=== PATIENT | female | born 1990 | race Caucasian/White ===

== ENCOUNTER 2021-12-19 10:32 | Outpatient (CLI) | payer BC, SELFPAY ==
[2021-12-19 11:14] LABS: Basophils Percent Auto 0.3 % (0.2-1.2); Eosinophils Absolute Auto 0.1 K/mm3 (0-0.3); Eosinophils Percent Auto 0.6 % (0-4.4); Hematocrit 38.4 % (37.0-47.0); Immature Granulocyte Absolute 0.05 K/mm3 (0.00-0.031); Immature Granulocyte Percent A 0.5 % (0-0.5); Lymphocytes Absolute Auto 1.35 K/mm3 (0.9-3.2); Lymphocytes Percent Auto 13.7 % (18.3-44.2); Mean Corpuscular HGB Conc 33.9 g/dl (32-36); Mean Corpuscular Hemoglobin 29.5 pg (26-34); Mean Corpuscular Volume 87.3 fl (80-100); Mean Platelet Volume 11.4 fl (7.4-10.4); Monocytes Absolute Auto 0.6 K/mm3 (0.1-0.6); Monocytes Percent Auto 5.7 % (2.6-8.5); Neutrophils Absolute Auto 7.8 K/mm3 (1.3-6.7); Neutrophils Percent Auto 79.2 % (45.5-73.1); Platelet Count Result 212 k/mm3 (150-375); Red Cell Distribution Width 13.2 % (11.5-14.5); White Blood Count 9.8 K/mm3 (4.5-10.0)
== END 2021-12-19 10:33 | disposition home or self-care (01) ==
PROVIDERS: Visit Provider Student in an Organized Health Care Education/Training Program
DX: Z34.90 Encounter for supervision of normal pregnancy, unspecified, unspecified trimester (principal); Z3A.00 Weeks of gestation of pregnancy not specified
CPT/HCPCS: 36415; 85025; 87040

== ENCOUNTER 2022-02-26 08:17 | Outpatient (RCR) | payer BC, SELFPAY ==
[2022-02-26] MEDS: RHO(D) IMMUNE GLOBULIN 300 MCG/2 ML SYRINGE IM (10:16)
== END 2022-02-26 09:00 | disposition home or self-care (01) ==
LOC: ANHLAB 08:17
PROVIDERS: Visit Provider Student in an Organized Health Care Education/Training Program
DX: Z34.90 Encounter for supervision of normal pregnancy, unspecified, unspecified trimester (principal); Z29.13 Encounter for prophylactic Rho(D) immune globulin; Z3A.00 Weeks of gestation of pregnancy not specified
CPT/HCPCS: 36415; 85461; 90384; 96372; J2790

== ENCOUNTER 2022-05-13 23:42 | Inpatient (IN) | payer BC, SELFPAY ==
[2022-05-14] VITALS (41 sets, daily range): BP systolic 92–145; BP diastolic 65–99; PULSE 45–80; RESP 16; TEMP 36.1–37; O2SAT 98–100; BMI 30.6
--- NOTE | 2022-05-14 00:31 | LDADM ---
This patient, Michela Thomson, was admitted to Labor/Delivery/Recovery 106 on 05/13/22 at 23:42. Plans for labor, pain management and were discussed with patient. Patient/family oriented to hospital policies and general routines including ID bracelet, bed and alarms, visiting hours, pain management, procedures, bathroom and other care routines, personal items, smoking policy, room service/diet and guest tray routines, security routines, and visiting hours. Patient/Family are encouraged to report perceived risks to care and to ask questions if they do not understand what they are told or what they should do. See OBIX for further documentation.
[2022-05-14 00:42] LABS: Basophils Absolute Auto 0.1 K/mm3 (0.0-0.1); Basophils Percent Auto 0.5 % (0.2-1.2); Eosinophils Absolute Auto 0.1 K/mm3 (0-0.3); Hematocrit 35.6 % (37.0-47.0); Hemoglobin 11.8 g/dL (12.0-15.0); Immature Granulocyte Absolute 0.08 K/mm3 (0.00-0.031); Immature Granulocyte Percent A 0.8 % (0-0.5); Lymphocytes Percent Auto 22.2 % (18.3-44.2); Mean Corpuscular HGB Conc 33.1 g/dl (32-36); Mean Corpuscular Hemoglobin 28.6 pg (26-34); Mean Corpuscular Volume 86.2 fl (80-100); Mean Platelet Volume 12.4 fl (7.4-10.4); Monocytes Absolute Auto 0.8 K/mm3 (0.1-0.6); Neutrophils Absolute Auto 6.7 K/mm3 (1.3-6.7); Neutrophils Percent Auto 67.5 % (45.5-73.1); Platelet Count Result 185 k/mm3 (150-375); Red Blood Count 4.13 M/mm3 (4.2-5.4); Red Cell Distribution Width 13.6 % (11.5-14.5); White Blood Count 9.9 K/mm3 (4.5-10.0)
--- NOTE | 2022-05-14 01:16 | WPDANESEPP ---
Anes - Eval Pre Procedure Procedure: labor epidural Date/Time: 05/14/22 01:16 Pre Op Diagnosis: IOL Patient Data Age: 31 Gender: F Height: 1.7 m Weight: 88.6 kg Last Vital Signs Temp 36.4 C 05/14/22 00:50 Pulse 64 05/14/22 01:16 BP 108/76 05/14/22 01:16 Pulse Ox 100 05/14/22 00:02 O2 Del Method Room Air 05/14/22 00:47 Allergies Allergy/AdvReac Type Severity Reaction Status Date / Time No Known Allergies Allergy Verified 05/14/22 00:48 Home Medications Medication Instructions Recorded Confirmed Type prenat.vits,yahir,zvf-eooq-bivky 1 tablet PO HS 04/22/22 05/14/22 History Laboratory Tests 05/14/22 05/14/22 00:04 00:04 WBC 9.9 K/mm3 K/mm3 (4.5-10.0) RBC 4.13 M/mm3 L M/mm3 (4.2-5.4) Hgb 11.8 g/dL L g/dL (12.0-15.0) Hct 35.6 % L % (37.0-47.0) MCV 86.2 fl fl (80-100) MCH 28.6 pg pg (26-34) MCHC 33.1 g/dl g/dl (32-36) RDW 13.6 % % (11.5-14.5) Plt Count 185 k/mm3 k/mm3 (150-375) MPV 12.4 fl H fl (7.4-10.4) Immature Gran % (Auto) 0.8 % H % (0-0.5) Neut % (Auto) 67.5 % % (45.5-73.1) Lymph % (Auto) 22.2 % % (18.3-44.2) [place] % (Auto) 8.0 % % (2.6-8.5) Eos % (Auto) 1.0 % % (0-4.4) Baso % (Auto) 0.5 % % (0.2-1.2) Lymph # (Auto) 2.20 K/mm3 K/mm3 (0.9-3.2) [place] # (Auto) 0.8 K/mm3 H K/mm3 (0.1-0.6) Eos # (Auto) 0.1 K/mm3 K/mm3 (0-0.3) Baso # (Auto) 0.1 K/mm3 K/mm3 (0.0-0.1) Abs Immat Gran (auto) 0.08 K/mm3 H K/mm3 (0.00-0.031) Absolute Neuts (auto) 6.7 K/mm3 K/mm3 (1.3-6.7) Absolute Nucleated RBC 0.0 K/mm3 K/mm3 (0.0-0.012) Nucleated RBC % 0.0 % % (0.0-0.2) RPR Pending Patient hx anesthesia problems: none Family hx anesthesia problems: none Results Review: All pre-operative results and documents have been reviewed as part of the pre-operative evaluation. [facility] Family History Family History Grandparent Cancer Grandparent Cerebrovascular accident Grandparent Cancer Grandparent Diabetes mellitus Social History Social History Smoking status: Never smoker Substance use: never Spiritual care concerns: No Exam Day of Procedure 05/14/22 01:16 Patient weight: obese Heart: regular rate and rhythm Lungs: normal air movement Airway: Mallampati scale Neurological: alert and oriented
[2022-05-14] MEDS: LACTATED RINGERS 1,000 ML 125 ML IV CONT (04:21)
[2022-05-14] MEDS: OXYTOCIN 30 UNITS/NS 500 ML 30 UNITS/500 ML BAG IV CONT (04:23)
[2022-05-14 06:15] LABS: Rapid Plasma Reagin Non-Reactive (NonReactive)
--- NOTE | 2022-05-14 09:10 | WPDOBADMIT ---
Obstetrics - Admit Note Admission Note: record reviewed. Additions to the history and/or subsequent changes in the physical findings follow. 31 y/o at 39 1/7 weeks here for induction of labor. GBS neg. AVSS NST reactive TOCO: contractions every 2-3 min ABD soft, nontender, gravid, vertex EXT nontender Cervix 4/80/-2. AROM with clear fluid. Vertex. A: IUP at term with favorable cervix, desiring induction of labor. P: Oxytocin. Anticipate .
[2022-05-14] MEDS: ONDANSETRON INJ 4 MG/2 ML VIAL IV PUSH (10:08)
[2022-05-14] MEDS: fentaNYL CITRATE INJ (*CRX) 100 MCG/2 ML VIAL IV PUSH (10:26)
--- NOTE | 2022-05-14 11:58 | PM.IMHP ---
H&P: HPI History of Present Illness Date/Time: 05/14/22 11:58 Chief Complaint: Intrauterine at term Narrative: 31 yo at 39w1d who presents for elective IOL. Pt is Rh negative and has received rhogam. The remainder of her has been uncomplicated. Review of Systems Cardiovascular: Cardiovascular: Denies chest pain, Denies leg edema, Denies palpitations, Denies dyspnea and Denies dyspnea on exertion Respiratory: Respiratory: Denies cough, Denies dyspnea and Denies dyspnea on exertion Gastrointestinal: Gastrointestinal: Denies abdominal pain, Denies constipation, Denies diarrhea, Denies nausea and Denies vomiting Genitourinary: Genitourinary: Denies hematuria, Denies urinary frequency, Denies dysuria, Denies pelvic pain, Denies urinary incontinence and Denies vaginal discharge Neurologic: Reports system reviewed and no additional complaints, except as documented Psychiatric: Psychiatric: Reports no additional psychiatric complaints Endocrine: Endocrine: Denies palpitations [facility] Family History Family History Grandparent Cancer Grandparent Cerebrovascular accident Grandparent Cancer Grandparent Diabetes mellitus Social History Social History Smoking status: Never smoker Substance use: never Spiritual care concerns: No Meds Home Medications and Allergies Home Medications Medication Instructions Recorded Confirmed Type prenat.vits,yahir,twu-bjmi-yycuj 1 tablet PO HS 04/22/22 05/14/22 History Allergies Allergy/AdvReac Type Severity Reaction Status Date / Time No Known Allergies Allergy Verified 05/14/22 00:48 Vital Signs Vital Signs - 24 hr 05/14/22 00:02 05/14/22 00:13 05/14/22 00:15 Temperature Pulse Rate 67 77 Blood Pressure 110/79 107/75 Pulse Oximetry 100 Oxygen Delivery 05/14/22 00:31 05/14/22 00:46 05/14/22 00:50 Temperature 36.4 C Pulse Rate 71 71 Blood Pressure 113/74 107/73 Pulse Oximetry Oxygen Delivery 05/14/22 01:16 05/14/22 01:31 05/14/22 02:01 Temperature Pulse Rate 64 63 59 L Blood Pressure 108/76 110/74 107/74 Pulse Oximetry Oxygen Delivery 05/14/22 02:50 05/14/22 04:08 05/14/22 04:31 Temperature 36.1 C L Pulse Rate 69 66 Blood Pressure 124/81 113/81 Pulse Oximetry Oxygen Delivery 05/14/22 04:32 05/14/22 05:01 05/14/22 05:31 Temperature 36.3 C L Pulse Rate 57 L 66 Blood Pressure 104/74 106/76 Pulse Oximetry Oxygen Delivery 05/14/22 06:01 05/14/22 06:31 05/14/22 07:30 Temperature 36.3 C L Pulse Rate 69 62 Blood Pressure 96/74 L 108/76 Pulse Oximetry Oxygen Delivery 05/14/22 08:01 05/14/22 08:31 05/14/22 09:16 Temperature Pulse Rate 80 65 66 Blood Pressure 118/71 117/67 116/81 Pulse Oximetry Oxygen Delivery 05/14/22 09:31 05/14/22 09:46 05/14/22 09:30 Temperature 36.2 C L Pulse Rate 57 L 62 Blood Pressure 125/86 141/99 H Pulse Oximetry Oxygen Delivery 05/14/22 11:01 05/14/22 11:16 05/14/22 11:31 Temperature Pulse Rate 62 45 L 56 L Blood Pressure 145/89 H 124/88 115/79 Pulse Oximetry Oxygen Delivery 05/14/22 00:47 Temperature Pulse Rate Blood Pressure Pulse Oximetry Oxygen Delivery Room Air Exam Const: General: no acute distress Eyes: EOM: EOMs intact bilaterally Neck: Neck: supple Thyroid: thyroid normal Chest: Breast/axilla inspection: normal inspection of the breasts Breast/axilla palpation: normal palpation of the breasts, normal palpation of the axillae and no axillary lymphadenopathy Resp: Effort & Inspection: normal respiratory effort Auscultation: clear to auscultation bilaterally Cardio: Rate: regular rate Rhythm: regular rhythm GI: Inspection: non-distended and other (Gravid) GI Palp: Yes Soft to palpation, No Tenderness to palpation pre
--- NOTE | 2022-05-14 12:00 | PM.OBPRVD ---
OB - Delivery Note Procedure Procedure: Patient pushed for a spontaneous vaginal delivery. The fetus was delivered atraumatically and placed on the maternal abdomen. The cord was clamped and cut after 1 minute of life. The cord was double clamped and cut and a segment of cord was collected for cord gases. Cord blood was collected for blood type and Coomb's testing. The placenta delivered spontaneously and was noted to be intact. The perineum was inspected and there was a 1st degree perineal laceration. The laceration was repaired with 3-0 vicryl in the usual fashion. The uterus was firm and good hemostasis was noted. The patient and fetus were stable in the delivery room. Induction method: Per Pitocin Protocol Delivery augmentation: Rupture of Membranes Delivery monitor: External FHT Route of delivery: Episiotomy description: None Laceration Description: Perineal - 1st Degree Delivery repair: vicryl Specimen: No Quantitative Blood Loss (ml): 200 Anesthesia type: None Disposition: Floor () Complications: No immediate complications [place] Baby Date of : 05/14/22 Time of : 11:42 Weeks of gestation at delivery: 39 Infant gender: Female Weight (pounds): 8 Weight (ounces): 5 presentation: vertex position: Left Occiput Anterior Placenta delivery description: Spontaneous Cord Vessel Description: 3 Vessels score one minute: 8 score five minutes: 9
[2022-05-14] MEDS: OXYTOCIN 30 UNITS/NS 500 ML 30 UNITS/500 ML BAG 125 UNITS IV CONT (12:21)
[2022-05-14] MEDS: LIDOCAINE HCL 1% PF 30 ML VIAL (12:26)
[2022-05-14] MEDS: IBUPROFEN 600 MG TABLET PO (14:27)
--- NOTE | 2022-05-14 14:46 | PC.NURSE ---
Patient transferred to post room #292 via wheelchair. Support person present. Oriented to unit, room, information board, rooming in, admission packet and security measures. Patient verbalizes understanding.
--- NOTE | 2022-05-14 17:36 | PC.NURSE ---
[id number] Introductions were made, then consulted with patient to assess needs related to . Mother led the conversation with her experience feeding her so far and states infant breastfed well downstairs. Mother works well with her infant with encouragement and education. Encouraged understanding of the benefits of skin to skin (unwrapping and placing vertically on her chest), responsive feeding and how to watch for early feeding signs, frequency of feeding on demand about every 8-12 times in 24 hours (every 2-3 hours), milk production, duration of feeding, signs of adequate intake/output and how to record on the feeding sheet. placed skin to skin on mother's chest. Breast assessment reveals a small bruise on the areola on bilateral breast. Discussed the possibility that might not have effectively breastfed. is sleepy and reluctant to breastfeed at this time. Mother demonstrates teaching of hand expression. Human milk is collected into a spoon and syringe fed 1/2 tsp by RN. Resources used to facilitate learning were used with the visual handouts/ tool/mom and baby guide. Mother voiced understanding of responsive feedings, stimulating with skin to skin, hand expressed colostrum, touch, talking to to encourage if it has been 2 -3 hours since the start of the last , to call if infant does not latch or there is discomfort with . Reported to the primary RN Maria Victoria.
[2022-05-15] MEDS: IBUPROFEN 600 MG TABLET PO (04:54)
[2022-05-15 05:15] VITALS: BP 114/75; PULSE 61; RESP 16; TEMP 36.4; O2SAT 99
[2022-05-15 05:47] LABS: Hematocrit 34.1 % (37.0-47.0); Hemoglobin 11.6 g/dL (12.0-15.0)
[2022-05-15] MEDS: MULTIVIT/MIN/PREN/FOL AC/IRON TABLET 1 TAB PO (08:02)
[2022-05-15 08:15] VITALS: BP 106/68; PULSE 62; RESP 16; TEMP 36.7; O2SAT 100
--- NOTE | 2022-05-15 12:05 | PC.NURSE ---
[id number] Mother verbalizes she is able to independently latch with appropriate positioning/alignment. She denies any nipple discomfort and is responsively . Infant is currently meeting outcomes for weight, output, jaundice and feeding frequencies of 8-12 times in 24 hours. Mother demonstrates latching infant with cradle positioning. is demonstrating non-nutritive sucking, mother visualizes the piston motion sucking without swallowing. Infant is detached from the breast when assessment of latch is <90 degrees. RN assisted mother with to the right breast using football positioning and mother verbalized understanding of the visual demonstration of a wide, open gape rocking motion, suck/swallow ratios, and seeing/hearing swallows. Mother is encouraged to call for assistance if her infant doesn?t latch, there is discomfort with latching, or she is not visualizing swallowing at the breast. Mother voiced understanding of information shared and mom and baby guide reviewed for additional resource information . Reported to the primary RN Amanda.
--- NOTE | 2022-05-15 13:00 | PM.OBDSVD ---
DS: Admitting Diagnosis Discharge Date 05/15/22 Admitting Diagnosis intrauterine at term OB - DS: Summary OB Procedures : None OB Procedures Intrapartum: Spontaneous Vag Delivery OB Procedures: : None Status at Discharge Functional status at discharge: independent ambulation Overall status at discharge: patient is back to baseline Time Spent with Patient Time attestation: Total time spent providing and/or coordinating discharge services: Time spent: Less than 30 minutes Exam Const: General: comfortable and no acute distress Resp: Effort & Inspection: normal respiratory effort Auscultation: clear to auscultation bilaterally Cardio: Rate: regular rate GI: GI Palp: Yes Soft to palpation Auscultation: normal bowel sounds Other: Fundus firm below umbilicus Psych: Appearance: grossly normal Mental Status: mental status grossly normal Affect: normal affect DS: Data Data Completed and Pending Labs on day of discharge: Labs from last 24 hours 05/15/22 05:27 Hgb 11.6 L Hct 34.1 L Discharge Plan Discharge Discharging Clinician: Donavan Stringer Patient Disposition: Home, Self-Care Activity: as tolerated and pelvic rest Diet: regular Patient Instructions: Antibiotic Form Stand Alone Forms: General Discharge Information Follow-up/Referrals: Donavan Stringer MD [Physician] - 4 Weeks Discharge Medications: New acetaminophen [Mapap (acetaminophen)] 325 mg Tablet 650 mg PO Q6H PRN (Reason: Mild Pain (1-3) Or Headache) Qty: 30 0RF ibuprofen 600 mg Tablet 600 mg PO Q6H PRN (Reason: Cramping) Qty: 30 0RF Continued #2 Tablet 1 tablet PO HS Date of admission: 05/13/22 23:42 Primary Care Provider: PHYSICIAN,CIRCUS SUPERVISOR Admitting Provider: Donavan Stringer Attending physician on admission: Donavan Stringer Condition: Stable
[2022-05-17 11:02] VITALS: BP 122/84; PULSE 84; RESP 16; TEMP 37.2; O2SAT 100
== END 2022-05-15 15:33 | disposition home or self-care (01) | DRG 807 ==
LOC: ANHLDR 05-14 10:20 → ANHOB2 05-14 14:47
PROVIDERS: Admitting Provider Student in an Organized Health Care Education/Training Program; Visit Provider Student in an Organized Health Care Education/Training Program
DX: O26.893 Other specified pregnancy related conditions, third trimester (principal); Z37.0 Single live birth; Z3A.39 39 weeks gestation of pregnancy; Z67.91 Unspecified blood type, Rh negative; O70.0 First degree perineal laceration during delivery
CPT/HCPCS: 36415; 85014; 85018; 85025; 86592; 86850; 86880; 86900; 86901; 86902; A9270; J2405; J2590; J3010; J7120

== ENCOUNTER 2022-06-14 18:14 | Emergency (ER) | payer BC, SELFPAY ==
--- NOTE | ~2022-06-14 | CT_ITS ---
EXAMINATION: CT brain wo con DATE: 06/14/2022 18:59 INDICATION: Headache. TECHNIQUE: Computed tomography (CT) of the head was performed without intravenous contrast. The mA wa s adjusted according to patient size. Iterative reconstruction technique was employed. The dose-lengt h product was 605.33 mGy-cm. COMPARISON: None FINDINGS: There is no intracranial hemorrhage, acute infarction, or abnormal intracranial mass lesion . The ventricles are normal in size. The orbits are normal. There is minimal mucosal thickening in th e paranasal sinuses. The mastoid air cells are normal. There are multiple calcified masses in the sca lp, likely benign. IMPRESSION: 1. Normal brain. Reviewed, dictated and finalized at location A. IMPRESSION: 1. Normal brain.
[2022-06-14 18:26] VITALS: BP 130/86; PULSE 60; RESP 18; TEMP 36.6; O2SAT 99
--- NOTE | 2022-06-14 20:48 | ED.HA ---
HPI - Headache General Chief Complaint: Headache <TERESO Gamez Last Filed: 06/15/22 00:28> Stated Complaint: migraine and tongue numbness <TERESO Gamez Last Filed: 06/15/22 00:28> Time Seen by Provider: 06/14/22 20:47 <TERESO Gamez Last Filed: 06/15/22 00:28> History of Present Illness HPI Narrative: Patient is a 31-year-old female here for evaluation of a migraine headache today. Patient states that the headache is frontal in nature, is pulsatile, and was relieved after [id number] pain meds. She does have a history of migraine headaches and states this feels similar. She presents emergency department because she states that the right half of her tongue is numb, and she cannot taste anything on that half. Denies similar sensation with previous migraines. No difficulty moving the tongue, weakness, visual changes, tick bites. <TERESO Gamez Last Filed: 06/15/22 00:28> Related Data Home Medications: Home Medications Medication Instructions Recorded Confirmed prenat.vits,yahir,qts-shla-halap 1 tablet PO HS 04/22/22 05/14/22 <TERESO Gamez Last Filed: 06/15/22 00:28> Allergies/Adverse Reactions: Allergies Allergy/AdvReac Type Severity Reaction Status Date / Time No Known Allergies Allergy Verified 06/14/22 18:31 <TERESO Gamez Last Filed: 06/15/22 00:28> Review of Systems Review of Systems: Gen.: Denies fevers or chills Eyes: Denies eye pain or visual change ENT: Denies congestion Respiratory: Denies shortness of breath or cough CV: Denies chest pain or palpitations GI: Denies abdominal pain nausea, emesis or diarrhea denies burning, urgency, frequency or hematuria Musculoskeletal: Denies back pain or muscle pain Neuro: Reports headache and numbness to right half of tongue. Denies weakness or focal weakness Skin: Denies rash Except as documented, all other systems reviewed and negative <LAURIE GamezC - Last Filed: 06/15/22 00:28> [facility] Family History Family History: Family History Grandparent Cancer Grandparent Cerebrovascular accident Grandparent Cancer Grandparent Diabetes mellitus <Antoinette Garcia PA-C - Last Filed: 06/15/22 00:28> Social History Social History: Social History Smoking status: Never smoker Substance use: never Spiritual care concerns: No <Antoinette Garcia PA-C - Last Filed: 06/15/22 00:28> Exam Narrative: APPEARANCE: Well appearing, no pain in distress, well-nourished. Head: Normocephalic and atraumatic. EYES: PERRLA/EOMI, conjunctivae clear NOSE: No nasal drainage EARS: External ear normal in appearance THROAT: Oropharynx is clear. Mucous membranes are moist. NECK: Supple. No adenopathy, no masses. RESPIRATORY: Airway patent, respirations nonlabored. Clear to auscultation bilaterally, no rales, rhonchi, wheezing. CARDIOVASCULAR: Regular rate and rhythm without murmurs, rubs, or gallops. ABDOMINAL: Normoactive bowel sounds. Soft, nontender, nondistended. No rebound tenderness or guarding. MUSCULOSKELETAL: Extremities are warm and well-perfused. Moves all extremities well. No edema. NEURO: Cranial nerves II through XII intact. Finger-nose normal. Normal speech. No focal neurologic deficits. SKIN: Skin is warm and dry. No rashes. PSYCHIATRIC: Normal affect/mood. <Antoinette Garcia PA-C - Last Filed: 06/15/22 00:28> Course APPLICATIONS SYSTEM ANALYST/PA Physician Supervision For this patient encounter, I reviewed the APPLICATIONS SYSTEM ANALYST or PA documentation, treatment plan, and medical decision making <Dereck Kelley MD - Last Filed: 06/15/22 13:01> Vital Signs Vital signs: Vital Signs Temperature 97.8 F 06/14/22 18:26 Pulse Rate 60 06/14/22 18:26 Respiratory Rate 18 06/14/22 18:2
[2022-06-14 21:05] LABS: Basophils Absolute Auto 0.1 K/mm3 (0.0-0.1); Basophils Percent Auto 0.8 % (0.2-1.2); Eosinophils Absolute Auto 0.3 K/mm3 (0-0.3); Eosinophils Percent Auto 5.2 % (0-4.4); Hematocrit 39.5 % (37.0-47.0); Hemoglobin 12.9 g/dL (12.0-15.0); Immature Granulocyte Absolute 0.02 K/mm3 (0.00-0.031); Immature Granulocyte Percent A 0.3 % (0-0.5); Lymphocytes Percent Auto 31.1 % (18.3-44.2); Mean Corpuscular HGB Conc 32.7 g/dl (32-36); Mean Corpuscular Hemoglobin 28.4 pg (26-34); Mean Corpuscular Volume 86.8 fl (80-100); Mean Platelet Volume 11.3 fl (7.4-10.4); Monocytes Absolute Auto 0.5 K/mm3 (0.1-0.6); Monocytes Percent Auto 7.4 % (2.6-8.5); Neutrophils Absolute Auto 3.4 K/mm3 (1.3-6.7); Neutrophils Percent Auto 55.2 % (45.5-73.1); Platelet Count Result 233 k/mm3 (150-375); Red Blood Count 4.55 M/mm3 (4.2-5.4); Red Cell Distribution Width 12.3 % (11.5-14.5); White Blood Count 6.1 K/mm3 (4.5-10.0)
[2022-06-14 21:15] LABS: Alanine Aminotransferase 23 U/L (6-35); Albumin Level 4.2 g/dL (3.5-5.1); Alkaline Phosphatase 94 U/L (38-126); Anion Gap 10 mmol/L (8-16); Aspartate Amino Transferase 24 U/L (14-36); Bilirubin,Total 0.2 mg/dL (0.2-1.3); Blood Urea Nitrogen 14 mg/dL (7-17); Carbon Dioxide 28 mmol/L (22-30); Chloride 100 mmol/L (98-107); Estimated CRCL calculation 85 ml/min; Estimated Glomerular Filt Rate > 60; Glucose 92 mg/dL (65-110); Potassium 3.7 mmol/L (3.4-5.0); Sodium 138 mmol/L (137-145)
[2022-06-14 21:17] LABS: Appearance Urine Clear (Clear); Bilirubin Urine Negative (Negative); Blood Urine 1+ (Negative); Color Urine Yellow (Yellow); Glucose Urine UA Negative (Negative); Ketones Urine Negative (Negative); Leukocyte Esterase Ur 1+ LEU/UL (Negative); Nitrate Urine Negative (Negative); Protein Urine Negative (Negative); Urobilinogen Urine 0.2 mg/dL (<2.0)
[2022-06-14 21:20] LABS: Add Urine Microscopic? YES; Amorphous Sediment Urine Few; Mucus Urine Rare /lpf; RBC Urine 0-2 /hpf (0-2); Squamous Epithelial Cell Urine Rare /hpf (Few)
[2022-06-14 21:28] VITALS: BP 127/92; PULSE 67; RESP 16; O2SAT 99
== END 2022-06-14 21:47 | disposition home or self-care (01) ==
PROVIDERS: Physician Assistant; Emergency Provider Emergency Medicine
DX: G43.909 Migraine, unspecified, not intractable, without status migrainosus (principal)
CPT/HCPCS: 36415; 70450; 80053; 81001; 85025; 87086; 99284

== ENCOUNTER 2022-06-22 08:34 | Outpatient (CLI) | payer BC, SELFPAY ==
--- NOTE | ~2022-06-22 | MR_ITS ---
EXAMINATION: MR brain/brain stem wo/w con DATE: 06/22/2022 09:21 INDICATION: Murphy's palsy. Left tongue numbness. Left facial weakness. TECHNIQUE: Magnetic resonance imaging (MRI) of the brain and brainstem was performed without with 15 mL MultiHance intravenous contrast. COMPARISON: Head CT 06/14/2022 FINDINGS: There is focal enhancement involving the fundus of the left internal auditory canal and lab yrinthine segment of left facial nerve, consistent with Murphy's palsy. There is no acute ischemic infa rct or intracranial hemorrhage. The ventricles are normal in size. The orbits are normal. The paranas al sinuses are clear. The mastoid air cells are normal. IMPRESSION: 1. Focal enhancement involving the fundus of the left internal auditory canal and labyrinthine segmen t of the left facial nerve, consistent with Murphy's palsy. Reviewed, dictated and finalized at location A. IMPRESSION: 1. Focal enhancement involving the fundus of the left internal auditory canal a nd labyrinthine segment of the left facial nerve, consistent with Murphy's palsy.
== END 2022-06-22 08:35 | disposition home or self-care (01) ==
PROVIDERS: Visit Provider Internal Medicine
DX: G51.0 Bell's palsy (principal)
CPT/HCPCS: 70553; A9577

== ENCOUNTER 2023-07-31 18:48 | Outpatient (NON) | payer BC, SELFPAY | END 2023-07-31 18:49 | disposition home or self-care (01) | LOC: ANHLAB 18:53 | PROVIDERS: Visit Provider Nurse Practitioner | DX: R22.9 Localized swelling, mass and lump, unspecified (principal) | CPT/HCPCS: 87070; 87075; 87076; 87205 ==

== ENCOUNTER 2023-09-11 14:14 | Outpatient (NON) | payer BC, SELFPAY | END 2023-09-11 14:15 | disposition home or self-care (01) | LOC: ANHLAB 14:16 | PROVIDERS: Visit Provider Nurse Practitioner | DX: L72.11 Pilar cyst (principal) | CPT/HCPCS: 88304 ==

== ENCOUNTER 2024-11-08 08:47 | Outpatient (RCR) | payer BC, SELFPAY ==
[2024-11-08] MEDS: RHO(D) IMMUNE GLOBULIN 300 MCG/2 ML SYRINGE IM (11:32)
== END 2025-02-06 23:59 | disposition home or self-care (01) ==
LOC: ANHLAB 08:47
PROVIDERS: Visit Provider Obstetrics & Gynecology
DX: Z29.13 Encounter for prophylactic Rho(D) immune globulin (principal); O36.0190 Maternal care for anti-D [Rh] antibodies, unspecified trimester, not applicable or unspecified; Z3A.00 Weeks of gestation of pregnancy not specified
CPT/HCPCS: 36415; 85461; 86850; 86900; 86901; 90384; 96372; J2790

== ENCOUNTER 2025-01-09 20:55 | Inpatient (IN) | payer BC, SELFPAY ==
[2025-01-09] VITALS (30 sets, daily range): BP systolic 112; BP diastolic 69; PULSE 65–116; TEMP 36.6; O2SAT 93–100; BMI 30.4
[2025-01-09] MEDS: LACTATED RINGERS 1,000 ML 125 ML IV CONT (21:00)
[2025-01-09 21:18] LABS: Basophils Percent Auto 0.2 % (0.2-1.2); Eosinophils Absolute Auto 0.1 K/mm3 (0-0.3); Eosinophils Percent Auto 0.9 % (0-4.4); Hematocrit 37.5 % (37.0-47.0); Hemoglobin 12.8 g/dL (12.0-15.0); Immature Granulocyte Absolute 0.07 K/mm3 (0.00-0.031); Immature Granulocyte Percent A 0.6 % (0-0.5); Lymphocytes Absolute Auto 2.39 K/mm3 (0.9-3.2); Lymphocytes Percent Auto 20.5 % (18.3-44.2); Mean Corpuscular HGB Conc 34.1 g/dl (32-36); Mean Corpuscular Hemoglobin 28.4 pg (26-34); Mean Corpuscular Volume 83.1 fl (80-100); Mean Platelet Volume 12.1 fl (7.4-10.4); Monocytes Absolute Auto 0.8 K/mm3 (0.1-0.6); Neutrophils Absolute Auto 8.3 K/mm3 (1.3-6.7); Neutrophils Percent Auto 70.8 % (45.5-73.1); Platelet Count Result 218 k/mm3 (150-375); Red Blood Count 4.51 M/mm3 (4.2-5.4); Red Cell Distribution Width 13.3 % (11.5-14.5); White Blood Count 11.7 K/mm3 (4.5-10.0)
[2025-01-09] MEDS: OXYTOCIN 30 UNITS/NS 500 ML 30 UNITS/500 ML BAG 999 UNITS IV CONT (21:20)
--- NOTE | 2025-01-09 21:26 | WPDOBADMIT ---
Obstetrics - Admit Note Admission Note: record reviewed. No pertinent additions to the history and/or any subsequent changes in the physical findings that are not consistent with the expected course of the were found. Additions to the history and/or subsequent changes in the physical findings follow. None. Patient arrived in labor and complete with BBOW on admit. On my arrival, AROM with clear fluid. FHTs cat I. Per patient and record, uncomplicated.
--- NOTE | 2025-01-09 21:27 | PM.OBDSVD ---
DS: Admitting Diagnosis Discharge Date 01/11/2025 <Steven Carson MD - Last Filed: 01/11/25 07:49> Admitting Diagnosis Labor <Becky Romero MD - Last Filed: 01/11/25 07:57> DS: Discharge Diagnosis Discharge Diagnosis (1) (normal spontaneous vaginal delivery): Code(s): O80 - Encounter for full-term uncomplicated delivery <Becky Romero MD - Last Filed: 01/11/25 07:57> Status: Acute <Becky Romero MD - Last Filed: 01/11/25 07:57> OB - DS: Summary OB Procedures : Ultrasound <Becky Romero MD - Last Filed: 01/11/25 07:57> OB Procedures Intrapartum: Spontaneous Vag Delivery <Becky Romero MD - Last Filed: 01/11/25 07:57> OB Procedures: : None <Becky Romero MD - Last Filed: 01/11/25 07:57> Peripartum Data Delivery Method: Natural Vaginal <Becky Romero MD - Last Filed: 01/11/25 07:57> Laceration Description: None <Becky Romero MD - Last Filed: 01/11/25 07:57> Episiotomy description: None <Becky Romero MD - Last Filed: 01/11/25 07:57> complications: none <Becky Romero MD - Last Filed: 01/11/25 07:57> Status at Discharge Functional status at discharge: independent ambulation <Becky Romero MD - Last Filed: 01/11/25 07:57> Overall status at discharge: patient is progressing back to baseline <Becky Romero MD - Last Filed: 01/11/25 07:57> Time Spent with Patient Time attestation: Total time spent providing and/or coordinating discharge services: <Becky Romero MD - Last Filed: 01/11/25 07:57> DS: Data Data Completed and Pending Labs on day of discharge: Labs from last 24 hours 01/09/25 21:11 WBC 11.7 H RBC 4.51 Hgb 12.8 Hct 37.5 MCV 83.1 MCH 28.4 MCHC 34.1 RDW 13.3 Plt Count 218 MPV 12.1 H Immature Gran % (Auto) 0.6 H Neut % (Auto) 70.8 Lymph % (Auto) 20.5 [place] % (Auto) 7.0 Eos % (Auto) 0.9 Baso % (Auto) 0.2 Lymph # (Auto) 2.39 [place] # (Auto) 0.8 H Eos # (Auto) 0.1 Baso # (Auto) 0.0 Abs Immat Gran (auto) 0.07 H Absolute Neuts (auto) 8.3 H Absolute Nucleated RBC 0.000 Nucleated RBC % 0.0 HIV 1&2 Ab/P24 Ag 4thGn Pending <Becky Romero MD - Last Filed: 01/11/25 07:57> Discharge Plan Discharge Attending physician on discharge: Foster Anaya <Becky Romero MD - Last Filed: 01/11/25 07:57> Foster Anaya <Steven Carson MD - Last Filed: 01/11/25 07:49> Discharging Clinician: Steven Henriquez <Becky Romero MD - Last Filed: 01/11/25 07:57> Steven Henriquez <Steven Carson MD - Last Filed: 01/11/25 07:49> Anticipated Discharge Date/Time: 01/11/25 21:28 <Becky Romero MD - Last Filed: 01/11/25 07:57> Patient Disposition: Home, Self-Care <Becky Romero MD - Last Filed: 01/11/25 07:57> Activity: may shower and pelvic rest <Becky Romero MD - Last Filed: 01/11/25 07:57> may shower and pelvic rest <Steven Carson MD - Last Filed: 01/11/25 07:49> Diet: regular <Becky Romero MD - Last Filed: 01/11/25 07:57> regular <Steven Carson MD - Last Filed: 01/11/25 07:49> Patient Instructions: Antibiotic Form <Becky Romero MD - Last Filed: 01/11/25 07:57> Patient Language: Kiswahili <Becky Romero MD - Last Filed: 01/11/25 07:57> Stand Alone Forms: General Discharge Information <Becky Romero MD - Last Filed: 01/11/25 07:57> Follow-up/Referrals: Foster Anaya MD [Physician] - Call for Appointment <Becky Romero MD - Last Filed: 01/11/25 07:57> Discharge Medications: Continued hydroxyzine HCl 25 mg tablet 25 mg PO PRN prenat.vits,yahir,azx-stuj-hcumk Tablet 1 tablet PO HS <Becky Romero MD - Last Filed: 01/11/25 07:57> Date of admission: 01/09/25 20:55 <Becky Romero MD - Last Filed: 01/11/25 07:57> Primary Care Provider: PHYSICIAN,HOME PLANNING CONSULTANT SALESPERSON <Becky Romero MD - Last Filed: 01/11/25 07:57> Admitting Provider: Foster Anaya <Becky Romero MD - Last Filed: 01/11/25 07:57> Attending physician on admission: Foster Anaya <Becky Romero MD - Last Filed: 01/11/25 07:57> Condition: Stable <Becky Romero MD - Last Filed: 01/11/25 07:57>
--- NOTE | 2025-01-09 21:29 | PM.OBPRVD ---
OB - Vaginal Delivery Note Procedure Delivery date: 01/09/25 Induction method: None Delivery monitor: External FHT and External Uterine Route of delivery: Episiotomy description: None Laceration Description: None Specimen: No Quantitative Blood Loss (ml): 50 Anesthesia type: None Disposition: Floor Complications: No immediate complications Narrative: After AROM, patient pushed over one contraction and delivered. Baby Date of : 01/09/25 Gestational Age by Date: 37 (37 5/7) gender: Female presentation: vertex position: Right Occiput Anterior Placenta delivery description: Spontaneous Cord Vessel Description: 3 Vessels, Nuchal Cord and Delayed Cord Clamping score one minute: 8 score five minutes: 9
[2025-01-09] MEDS: OXYTOCIN 30 UNITS/NS 500 ML 30 UNITS/500 ML BAG 125 UNITS IV CONT (21:50)
[2025-01-09 22:08] LABS: HIV 1/2 Ab P24 Ag Result Negative (Negative)
[2025-01-09 22:11] LABS: Syphilis IgG/IgM Antibody Negative (Negative)
[2025-01-09] MEDS: ACETAMINOPHEN 325 MG TABLET 650 MG PO (22:52)
--- NOTE | 2025-01-09 23:38 | OBPPTRN ---
Patient transferred to post room #284 via w/c. Support person present. Oriented to unit, room, information board, rooming in, admission packet and security measures. Patient verbalizes understanding.
[2025-01-10] VITALS: BP 100/70; PULSE 73; RESP 18; TEMP 36.8
[2025-01-10 04:40] VITALS: BP 105/72; PULSE 71; RESP 18; TEMP 36.6
[2025-01-10] MEDS: IBUPROFEN 600 MG TABLET PO ×2 (05:36→22:10)
[2025-01-10 06:04] LABS: Hematocrit 36.6 % (37.0-47.0)
--- NOTE | 2025-01-10 07:53 | P.PNOB_ITS ---
OB - PN: Subj Subjective Date/time seen: 01/10/25 07:53 Patient comments: no complaints, pain well controlled and tolerating diet [place] baby status: doing well OB - PN: Obj Data Labs 01/10/25 05:56 Labs: Laboratory Results - last 24 hr 01/09/25 01/10/25 21:11 05:56 WBC 11.7 H RBC 4.51 Hgb 12.8 12.0 Hct 37.5 36.6 L MCV 83.1 MCH 28.4 MCHC 34.1 RDW 13.3 Plt Count 218 MPV 12.1 H Immature Gran % (Auto) 0.6 H Neut % (Auto) 70.8 Lymph % (Auto) 20.5 [place] % (Auto) 7.0 Eos % (Auto) 0.9 Baso % (Auto) 0.2 Lymph # (Auto) 2.39 [place] # (Auto) 0.8 H Eos # (Auto) 0.1 Baso # (Auto) 0.0 Abs Immat Gran (auto) 0.07 H Absolute Neuts (auto) 8.3 H Absolute Nucleated RBC 0.000 Nucleated RBC % 0.0 Syphilis IgG/IgM Ab Negative HIV 1&2 Ab/P24 Ag 4thGn Negative Blood Type O Negative Antibody Screen Positive Antibody Identification Passive Due to RH Imm Glob Antigen Identification Cancelled JERMAINE, IgG Interpret Not Performed JERMAINE, Poly Interpret Neg JERMAINE, Complement Interp Not Performed OB - PN A/P Assessment and Plan (1) (normal spontaneous vaginal delivery): Code(s): O80 - Encounter for full-term uncomplicated delivery Status: Acute Plan Comments: Patient desires discharge home today with follow-up in 6 weeks Time Spent With Patient Time: Total time spent is greater than 50% in coordination of care (as documented) at patient's floor/unit and/or counseling patient: Review of Systems 2 Review of Systems: Gen.: Denies fevers or chills Eyes: Denies eye pain or visual change ENT: Denies congestion Respiratory: Denies shortness of breath or cough CV: Denies chest pain or palpitations GI: Denies abdominal pain nausea, emesis or diarrhea denies burning, urgency, frequency or hematuria Musculoskeletal: Denies back pain or muscle pain Neuro: Reports headache and numbness to right half of tongue. Denies weakness or focal weakness Skin: Denies rash Except as documented, all other systems reviewed and negative Exam 2 Const: General: cooperative, healthy appearing and comfortable O rientation/consciousness: oriented to person, oriented to place and oriented to time Resp: Effort & Inspection: normal respiratory effort GI: Inspection: normal to inspection
[2025-01-10 08:30] VITALS: BP 112/72; PULSE 77; RESP 16; TEMP 36.6; O2SAT 99
[2025-01-10 08:45] VITALS: PULSE 77; RESP 16; O2SAT 99
[2025-01-10 12:45] VITALS: BP 104/76; PULSE 79; RESP 16; TEMP 36.7; O2SAT 98
--- NOTE | 2025-01-10 18:41 | PC.NURSE ---
1715. Met with patient to assess and discuss needs related to feeding. Mother states it is her intention to combo feed. Mom reports she has no pain with feeding at this time. She reports she has been feeding about every 4 hours for 30-50 min. We discussed aiming to feed every 2-3 hours instead to get in more feedings during the day and to help establish her milk supply and make sure is getting enough. Mom reports she Breastfed for a short time with her first two children. Observed mother latching infant to the right breast in cross cradle position. Infant was able to maintain an appropriate latch. Mother declines declines nipple pain/discomfort throughout feeding. Encouraged mother to keep awake and nursing at the breast for 15 minutes. Mother taught to listen for infant swallowing during feedings. Encouraged mother to breastfeed infant 8-12 times in 24 hours (approximately every 2-3 hours), watching for early feeding cues. If is sleepy, unwrap and place baby skin to skin. Discussed signs that is effectively , i.e. sufficient voids and stools, jaundice within normal limits, <10% weight loss from . Mother educated on milk production, supply and demand, and expectations for in the immediate period. Encouraged feeding on demand and feeding durations of 15 minutes or greater. Discussed breast/nipple care with good hand hygiene, signs of a correct latch, listening for infant swallows and documenting feedings on the feeding sheet. Mother instructed to call for assistance if infant will not feed every 3 hours, if there is discomfort with , or if mother has any other questions or concerns. resources provided including the Mom and Baby Guide and name/number on communication board. Mother verbalized understanding. Updated patient?s primary RN with education provided.?
[2025-01-10 22:03] VITALS: BP 113/75; PULSE 73; RESP 18; TEMP 36.4; O2SAT 98
[2025-01-10] MEDS: MULTIVIT/MIN/PREN/FOL AC/IRON TABLET 1 TAB PO (22:10)
[2025-01-11 07:35] VITALS: BP 105/75; PULSE 87; RESP 16; TEMP 36.6; O2SAT 98
[2025-01-11] MEDS: DOCUSATE SODIUM 100 MG CAPSULE PO (08:13)
--- NOTE | 2025-01-11 10:08 | PC.NURSE ---
0730: Mother verbalizes she is able to independently latch infant with appropriate positioning and alignment. She denies any nipple discomfort and is responsively . Discussed long feeds and when infant is pacifying vs. actively feeding. Educated mother about lengths of feedings once her milk is in. Discussed introducing pacifier to and being able to differentiate hunger cues vs. pacifying. is currently meeting outcomes for weight, output, jaundice, blood sugar and feeding frequencies of 8-12 times in 24 hours. Mother is encouraged to call for assistance if her infant doesn?t latch, pain with latching, questions or concerns.
[2025-01-13 09:16] VITALS: BP 102/72; PULSE 84; RESP 18; TEMP 36.6; O2SAT 100
== END 2025-01-11 10:19 | disposition home or self-care (01) | DRG 807 ==
LOC: ANHLDR 01-12 09:41 → ANHOB2 01-12 09:41
PROVIDERS: Admitting Provider Obstetrics & Gynecology Gynecology; Visit Provider Obstetrics & Gynecology
DX: O69.81X0 Labor and delivery complicated by cord around neck, without compression, not applicable or unspecified (principal); Z37.0 Single live birth; O62.3 Precipitate labor; Z3A.37 37 weeks gestation of pregnancy
CPT/HCPCS: 36415; 85014; 85018; 85025; 86593; 86703; 86850; 86880; 86900; 86901; A9270; G0432; J2590; J7120

== ENCOUNTER 2025-05-17 15:14 | Emergency (ER) | payer BC, SELFPAY ==
--- NOTE | ~2025-05-17 | XR_ITS ---
EXAM: XR foot LT min 3V DATE: 05/17/2025 15:31 HISTORY: plantar pain, step/twist injury with pop noise . COMPARISON: None available. FINDINGS: Normal mineralization. No fracture or dislocation. No lytic or blastic lesion. Mild degene rative change at the first MTP joint and talonavicular joint. Os navicularis. No erosion or periostea l change. Soft tissues within normal limits. IMPRESSION: No acute osseous finding in the left foot. Reviewed, dictated and finalized at location K.
[2025-05-17 15:14] VITALS: BP 111/77; PULSE 84; RESP 16; TEMP 36.2; O2SAT 97
--- NOTE | 2025-05-17 15:43 | ED.LOWEXIN ---
HPI - Extremity Injury (Lower) General Chief Complaint: Extremity Injury, Lower Stated Complaint: foot injury Time Seen by Provider: 05/17/25 15:18 Source: patient Mode of arrival: ambulatory Limitations: no limitations History of Present Illness HPI Narrative: 34-year-old otherwise healthy here with the complaints of left foot pain which started yesterday. Patient states that she was standing on her toes supporting her daughter and this morning when she turned stated to have severe pain. complaint: foot injury Onset (ago): day(s) (1) Place: home Severity: mild Relieving factors: nothing Exacerbating factors: nothing Other symptoms: none Related Data Home Medications ?Medication ?Instructions ?Recorded ?Confirmed ?Last Taken ?Type prenat.vits,yahir,jmd-felw-mpsct 1 tablet PO HS 04/22/22 01/03/25 01/02/25 History hydroxyzine HCl 25 mg tablet 25 mg PO PRN 01/03/25 01/03/25 Unknown History Allergies Allergy/AdvReac Type Severity Reaction Status Date / Time No Known Allergies Allergy Verified 05/17/25 15:25 Review of Systems Review of Systems: All systems reviewed & are unremarkable except as noted in HPI and below Constitutional: Constitutional: Reports no additional constitutional complaints Eyes: Eyes: Reports no additional eye complaints ENT: Reports system reviewed and no additional complaints, except as documented Cardiovascular: Cardiovascular: Reports no additional cardiovascular complaints Respiratory: Respiratory: Reports no additional respiratory complaints Musculoskeletal: Musculoskeletal: Reports as per HPI Psychiatric: Psychiatric: Reports no additional psychiatric complaints PMFSH Family History Family History Grandparent Cancer Grandparent Cerebrovascular accident Grandparent Cancer Grandparent Diabetes mellitus Social History Social History Smoking status: Never smoker Substance use: never Do You Feel Safe in your Home?: Yes Lack of Transportation: No Lack of Food: Never True Current Housing: I Have Housing Concerned About Future Housing: No Difficulty Paying Gas/Electric Bills: No Difficulty Paying for Meds: No Currently Unemployed: No Education: Associate Degree Difficulty w/ Childcare or Family Care: No Spiritual care concerns: No Exam Narrative: GENERAL: Well-appearing, well-nourished, and in no acute distress. HEAD: Normocephalic, atraumatic. EYES: PERRLA and EOMI. NECK: Supple. CHEST: Clear to auscultation. No respiratory distress. HEART: Regular rate and rhythm. No murmur heard. Normal peripheral pulse. EXTREMITIES: Normal range of motion. No edema. SKIN: Warm, dry, no rash. NEURO: No focal deficits. Alert and oriented x3. PSYCH: Normal mood and affect. Course Vital Signs Vital signs: Vital Signs Temperature 36.2 C L 05/17/25 15:14 Pulse Rate 84 05/17/25 15:14 Respiratory Rate 16 05/17/25 15:14 Blood Pressure 111/77 05/17/25 15:14 Pulse Oximetry 97 05/17/25 15:14 Oxygen Delivery Room Air 05/17/25 15:14 Temperature 36.2 C L 05/17/25 15:14 Pulse Rate 84 05/17/25 15:14 Respiratory Rate 16 05/17/25 15:14 Blood Pressure 111/77 05/17/25 15:14 Pulse Oximetry 97 05/17/25 15:14 Oxygen Delivery Room Air 05/17/25 15:14 MDM - Extremity Injury (Lower) Differential Diagnosis Differential diagnosis: Likely other (foot strain, fracture) Imaging Data Radiologist's impression: ITS Impressions Foot X-Ray 05/17/25 15:33 IMPRESSION: No acute osseous finding in the left foot. Discharge Plan Discharge Clinical Impression: Strain of foot, left Qualifiers: Encounter type: initial encounter Qualified Code(s): S96.912A - Strain of unspecified muscle and tendon at ankle and foot level, left foot, initial encounter Patient Disposition: Home Condition: Stable Instructions: Antibiotic Form, Arthralgia (ED) Additional Instructions: can take Tylenol or ibuprofen for pain Patient Language: Y[place]ut Prescriptions: No Action hydroxyzine HCl 25 mg tablet 25 mg PO PRN prenat.vits,yahir,lfo-degd-pdzsw Tablet 1 tablet PO HS Follow-up/Referrals: Osvaldo Modi DO [Physician] - PHYSICIAN,[employer] [Primary Care Provider] - Time of Disposition: 15:48
== END 2025-05-17 16:05 | disposition home or self-care (01) ==
LOC: CHSED 15:54
PROVIDERS: Emergency Provider Family Medicine; Referring Provider Internal Medicine
DX: S96.912A Strain of unspecified muscle and tendon at ankle and foot level, left foot, initial encounter (principal); X58.XXXA Exposure to other specified factors, initial encounter
CPT/HCPCS: 73630; 99283